=== PATIENT | male | born 2000 | race Caucasian/White ===

== ENCOUNTER → 2019-10-09 | Outpatient (CLI) | payer OTHER | LOC: LAB 15:07 | PROVIDERS: ATTEND Neuromusculoskeletal Medicine & OMM | DX: R05 Cough (principal); R68.83 Chills (without fever); Z20.828 Contact with and (suspected) exposure to other viral communicable diseases ==

== ENCOUNTER → 2020-08-30 | Outpatient (CLI) | payer OTHER | LOC: ULTRA 09:38 | PROVIDERS: ATTEND Nurse Practitioner | DX: K76.0 Fatty (change of) liver, not elsewhere classified (principal) ==